=== PATIENT | male | born 1975 | race African-American/Black ===

== ENCOUNTER 2020-01-08 08:14 | Emergency (ER) | payer OTHER, SELFPAY ==
[2020-01-08 08:25] VITALS: BP 125/81; PULSE 79; RESP 16; TEMP 36.3; O2SAT 99
--- NOTE | 2020-01-08 08:25 | ED.DENTAL ---
HPI - Dental/Oral General Chief complaint: Dental/Oral Stated complaint: tooth pain Time Seen by Provider: 01/08/20 08:25 Source: patient and RN notes reviewed History of Present Illness HPI Narrative: Patient is a 44-year-old male who presents the urgent care with complaints of left lower dental pain. Patient states is been ongoing for approximately 1 week and is become more painful and swollen. Patient does have a follow-up appointment on the with a dentist. Patient is a daily smoker. Denies any known fever, nausea, vomiting. Patient has not taken anything [id number] for the pain today. No other acute complaints. No acute distress noted. Patient read the plan of care. Related Data Allergies Allergy/AdvReac Type Severity Reaction Status Date / Time No Known Allergies Allergy Unverified 06/18/13 13:59 Review of Systems Review of Systems: Narrative: CONSTITUTIONAL: Denies fever, chills, or sweats. EYES: Denies visual changes, redness, or discharge. ENT: Denies rhinorrhea, congestion, sore throat, or otalgia. Reports of lower left dental pain and swelling CARDIOVASCULAR: Denies chest pain, palpitations, or edema. RESPIRATORY: Denies cough or dyspnea. GASTROINTESTINAL: Denies abdominal pain, nausea, vomiting, or diarrhea. GENITOURINARY: Denies dysuria or hematuria. SKIN: Denies rash or itching. MUSCULOSKELETAL: Denies back pain, joint pain, or myalgia. NEUROLOGIC: Denies headache, numbness, or weakness. All other systems reviewed are negative, except as documented in HPI. PMFSH Comments At the time of my signature, I reviewed and agree with the nursing past medical, surgical, social, and family history. There is no relevant family history pertinent to the patient complaint. Exam Narrative: Exam Narrative: GENERAL: This is a well-nourished, well-developed patient, in no apparent distress. HEAD: normocephalic, atraumatic. EYES: PERRL. Sclera clear/white. Vision is grossly intact. EARS: External ears normal NOSE: External nose normal with no obvious nasal discharge, nares without redness, no rhinorrhea. THROAT: Mucous membranes moist, posterior pharynx clear. DENTAL: Fine fine lower left third molar, tooth #17, completely avulsed at the gumline with notable caries and moderate surrounding erythema with mild edema. Notable caries and avulsions throughout dentition. NECK: Neck supple SKIN: warm, intact with no suspicious lesions or rash, good texture and turgor. NEURO: awake, alert, and oriented to person, place and time. There were no obvious focal neurologic abnormalities. EXTREMITIES: No clubbing, cyanosis, or edema. Course Vital Signs Vital signs: Vital Signs Temperature 97.4 F L 01/08/20 08:25 Pulse Rate 79 01/08/20 08:25 Respiratory Rate 16 01/08/20 08:25 Blood Pressure 125/81 01/08/20 08:25 Pulse Oximetry 99 01/08/20 08:25 Temperature 97.4 F L 01/08/20 08:25 Pulse Rate 79 01/08/20 08:25 Respiratory Rate 16 01/08/20 08:25 Blood Pressure 125/81 01/08/20 08:25 Pulse Oximetry 99 01/08/20 08:25 Reviewed MDM - Dental/Oral MDM Narrative Medical decision making narrative: Advised patient complete oral antibiotic regimen as prescribed. Use ibuprofen as needed for pain. May use ice to the left lower jaw for comfort. Make sure to eat and drink with the medication. Use [id number] Prevention mouthwash twice a day. [place] and floss twice a day. Try to limit smoking. If you experience any increase in pain associated with severe facial swelling, fever, nausea, vomiting?go to the emergency room. Follow-up as scheduled on the for your dental appointment. Differential Diagnosis Differential diagnosis: Likely gingival abscess, dental caries, toothache, dental abscess and fracture of tooth Critical Care Time Critical Care Time Critical Care Time: No Discharge Plan Discharge Clinical Impression: Dental caries, Dental abscess Patient Disposition: Home, Self-Care
== END 2020-01-08 08:43 | disposition home or self-care (01) ==
PROVIDERS: Emergency Provider Nurse Practitioner Family
DX: K02.9 Dental caries, unspecified (principal); K04.7 Periapical abscess without sinus; F17.200 Nicotine dependence, unspecified, uncomplicated
CPT/HCPCS: 99213; G0463